=== PATIENT | male | born 1970 | race African-American/Black ===

== ENCOUNTER 2018-04-16 13:30 | Emergency (ER) | payer OTHER ==
[~2018-04-16] VITALS: Ht 182.9 cm; Wt 159.0 kg
[~2018-04-16 13:30] MED LIST: APIDINJ SQ; GLIM4TAB PO; GLUM500T PO; HYDR-2768 PO; LANTINJ SC; NORV5TAB PO
[2018-04-16 13:43] VITALS: BP 155/73; PULSE 99; RESP 18; TEMP 98.7; O2SAT 99
[2018-04-16] MEDS ORDERED: HUMALOG SQ (14:06)
[2018-04-16] MEDS ORDERED: INSU1INJ14 SQ (14:06)
[2018-04-16] MEDS ORDERED: TEST200I13 IM (14:06)
[2018-04-16] MEDS ORDERED: DULA10IN SQ (14:06)
[2018-04-16] MEDS ORDERED: CIAL2.5T PO (14:06)
[2018-04-16] MEDS ORDERED: LISI40TA PO (14:06)
--- NOTE | 2018-04-16 14:30 | RADRPT ---
EXAM DATE/TIME: 04/16/2018 14:16 [place] COMPARISON: No previous studies available for comparison. INDICATIONS : Cough MEDICAL HISTORY : Hypertension. Diabetes mellitus type II. SURGICAL HISTORY : None. ENCOUNTER: Initial ACUITY: 1 day PAIN SCORE: 0/10 LOCATION: chest FINDINGS: No significant focal pleural or parenchymal opacities given portable technique. The cardiomediastinal contours are unremarkable. Osseous structures are intact. CONCLUSION: 1. Negative portable chest. Grant Dumont MD on April 16, 2018 at 14:28 Board Certified Radiologist. This report was verified electronically.
[2018-04-16 14:50] LABS: AUTOMATED NEUTROPHIL # 9.5 TH/MM3 (1.8-7.7); BASOPHIL # 0.1 TH/MM3 (0-0.2); BASOPHIL % 0.7 % (0.0-2.0); EOSINOPHIL # 0.3 TH/MM3 (0-0.4); HEMATOCRIT 42.1 % (39.0-51.0); HEMOGLOBIN 13.5 GM/DL (13.0-17.0); LYMPH % 16.4 % (9.0-44.0); LYMPHOCYTE # 2.1 TH/MM3 (1.0-4.8); MEAN CELL VOLUME 84.3 FL (80.0-100.0); MEAN CORPUSCULAR HEMOGLOBIN 27.1 PG (27.0-34.0); MEAN CORPUSCULAR HGB CONC 32.2 % (32.0-36.0); MEAN PLATELET VOLUME 8.9 FL (7.0-11.0); MONO % 5.8 % (0.0-8.0); MONOCYTE # 0.7 TH/MM3 (0-0.9); NEUT % 75.1 % (16.0-70.0); PLATELET COUNT 301 TH/MM3 (150-450); RED CELL DISTRIBUTION WIDTH 14.5 % (11.6-17.2); WHITE BLOOD COUNT 12.7 TH/MM3 (4.0-11.0)
[2018-04-16 15:22] LABS: ALBUMIN 3.2 GM/DL (3.4-5.0); ALT (GPT) 27 U/L (12-78); AST (GOT) 21 U/L (15-37); BICARBONATE 29.3 MEQ/L (21.0-32.0); BLOOD UREA NITROGEN 17 MG/DL (7-18); CALCIUM 8.9 MG/DL (8.5-10.1); CHLORIDE 105 MEQ/L (98-107); CREATININE 1.27 MG/DL (0.60-1.30); GLOMERULAR FILTRATION RATE 74 ML/MIN (>89); GLUCOSE,RANDOM 117 MG/DL (74-106); SODIUM (NA) 141 MEQ/L (136-145)
[2018-04-16 15:26] LABS: ALKALINE PHOSPHATASE 63 U/L (45-117); TOTAL BILIRUBIN ADULT 0.2 MG/DL (0.2-1.0); TOTAL PROTEIN 6.9 GM/DL (6.4-8.2); TROPONIN I LESS THAN 0.02 NG/ML (0.02-0.05)
--- NOTE | 2018-04-16 16:04 | PD ---
HPI Chief Complaint: Edema Time Seen by Provider: 13:52 Travel History International Travel<30 days: No Contact w/Intl Traveler<30days: No Traveled to known affect area: No History of Present Illness HPI Patient is a 47 year old male who comes in complaining of swelling of his legs, arms, and neck. He says he started Lisinopril 3 weeks ago and was concerned this may be causing it. He says he was looking up his symptoms online and was reading about heart failure and kidney failure and became nervous. He denies any difficulty breathing. He denies swelling to his mouth or throat. He says this has been coming and going, but has been steady for the past few days. The swelling in his legs decreases overnight and gets worse during the day. Severity is mild. PFSH Past Medical History Arthritis: No Blood Disorders: No Heart Rhythm Problems: No Cancer: No Cardiovascular Problems: No High Cholesterol: No Chest Pain: No Congestive Heart Failure: No Diabetes: Yes Patient Takes Glucophage: No Diminished Hearing: No Endocrine: Yes Genitourinary: No Hepatitis: No Hiatal Hernia: No Hypertension: Yes Immune Disorder: No Implanted Vascular Access Dvce: No Musculoskeletal: Yes (CHRONIC BACK AND LT HIP PAIN) Neurologic: No Psychiatric: Yes (CLAUSTROPHOBIC) Reproductive: No Respiratory: Yes (CHILDHOOD ASTHMA, SLEEP APNEA, USES CPAP) Myocardial Infarction: No Sleep Apnea: Yes (CPAP /W O2) Thyroid Disease: No PNEUMOCCOCAL Vaccine (Year): 2 Past Surgical History Abdominal Surgery: No AICD: No Arteriovenous Shunt: No Cardiac Surgery: No Ear Surgery: No Eye Surgery: No Genitourinary Surgery: No Gynecologic Surgery: No Insulin Pump: No Joint Replacement: No Oral Surgery: No Pacemaker: No Thoracic Surgery: No Social History Alcohol Use: Yes (OCCASIONAL) Tobacco Use: No Substance Use: No Allergies-Medications (Allergen,Severity, Reaction): Coded Allergies: No Known Allergies (Verified , 04/26/14) Reported Meds & Prescriptions Reported Meds & Active Scripts Active Reported Cialis (Tadalafil) 2.5 Mg Tab Unknown Dose PO 2XWEEK Do not exceed 1 dose/day. Testosterone Enanthate Inj (Testosterone Enanthate) 200 Mg/Ml Inj 1.5 Mg IM Q15D Trulicity Inj (Dulaglutide Inj) 0.75 Mg/0.5 Ml Pen 1.75 Mg SQ Q7D Lisinopril 40 Mg Tab 40 Mg PO DAILY Tresiba Flextouch Pen Inj (Insulin Degludec Inj) 300 unit/3 ML Pen 80 Units SQ HS Humalog Inj (Insulin Human Lispro) 1,000 Unit/10 Ml Vial 1-9 Units SQ ACHS Max dose at bedtime:( )units; sugars< 70,(0)units; sugars 150-199,(1)unit; sugars 200-249,(3)units; sugars 250-299,(5)units; sugars 300-349,(7)units; sugars more than 349,(9)units. Review of Systems Except as stated in HPI: all other systems reviewed are Neg General / Constitutional: No: Fever, Chills HENT: No: Headaches, Lightheadedness Cardiovascular: No: Chest Pain or Discomfort Respiratory: No: Shortness of Breath Gastrointestinal: No: Nausea, Vomiting Musculoskeletal: Positive: Edema, No: Pain Skin: No Rash, No Change in Pigmentation Neurologic: No: Weakness, Dizziness Physical Exam Narrative GENERAL: Awake and alert, in no acute distress. SKIN: Focused skin assessment warm/dry. HEAD: Atraumatic. Normocephalic. EYES: Pupils equal and round. No scleral icterus. ENT: No swelling of the lips or tongue. No pharyngeal edema. Mucous membranes pink and moist. NECK: Trachea midline. No JVD. CARDIOVASCULAR: Regular rate and rhythm. No murmur appreciated. RESPIRATORY: No accessory muscle use. Clear to auscultation. Breath sounds equal bilaterally. GASTROINTESTINAL: Abdomen soft, non-tender, nondistended. MUSCULOSKELETAL: No obvious deformities. No clubbing. No cyanosis. minimal edema of the bilateral lower extremities. NEUROLOGICAL: Awake and alert. No obvious cranial nerve deficits. Motor grossly within normal limits. Normal speech. PSYCHIATRIC: Appropriate mood and affect; insight and judgment normal. Data Data Last Documented VS Vital Signs Date Time Temp Pulse Resp B/P (MAP) Pulse Ox O2 Delivery O2 Flow Rate FiO2 04/16/18 13:43 98.7 99 18 155/73 (100) 99 Orders Orders Iv Access Insert/Monitor (04/16/18 14:10) Complete Blood Count With Diff (04/16/18 14:10) Comprehensive Metabolic Panel (04/16/18 14:10) Electrocardiogram (04/16/18 ) Troponin I (04/16/18 14:10) B-Type Natriuretic Peptide (04/16/18 14:10) Chest, Single Ap (04/16/18 ) Labs Laboratory Tests Test 04/16/18 14:00 White Blood Count 12.7 TH/MM3 Red Blood Count 5.00 MIL/MM3 Hemoglobin 13.5 GM/DL Hematocrit 42.1 % Mean Corpuscular Volume 84.3 FL Mean Corpuscular Hemoglobin 27.1 PG Mean Corpuscular Hemoglobin Concent 32.2 % Red Cell Distribution Width 14.5 % Platelet Count 301 TH/MM3 Mean Platelet Volume 8.9 FL Neutrophils (%) (Auto) 75.1 % Lymphocytes (%) (Auto) 16.4 % Monocytes (%) (Auto) 5.8 % Eosinophils (%) (Auto) 2.0 % Basophils (%) (Auto) 0.7 % Neutrophils # (Auto) 9.5 TH/MM3 Lymphocytes # (Auto) 2.1 TH/MM3 Monocytes # (Auto) 0.7 TH/MM3 Eosinophils # (Auto) 0.3 TH/MM3 Basophils # (Auto) 0.1 TH/MM3 CBC Comment DIFF FINAL Differential Comment Blood Urea Nitrogen 17 MG/DL Creatinine 1.27 MG/DL Random Glucose 117 MG/DL Total Protein 6.9 GM/DL Albumin 3.2 GM/DL Calcium Level 8.9 MG/DL Alkaline Phosphatase 63 U/L Aspartate Amino Transf (AST/SGOT) 21 U/L Alanine Aminotransferase (ALT/SGPT) 27 U/L Total Bilirubin 0.2 MG/DL Sodium Level 141 MEQ/L Potassium Level 4.2 MEQ/L Chloride Level 105 MEQ/L Carbon Dioxide Level 29.3 MEQ/L Anion Gap 7 MEQ/L Estimat Glomerular Filtration Rate 74 ML/MIN Troponin I LESS THAN 0.02 NG/ML B-Type Natriuretic Peptide LESS THAN 2 PG/ML MDM Medical Decision Making Medical Screen Exam Complete: Yes Emergency Medical Condition: Yes Interpretation(s) ECG shows NSR at 100, no ST elevation or depression Differential Diagnosis dependent edema vs DIANE vs CHF Narrative Course Patient is a 47 year old male who comes in complaining of swelling of his arms and legs. There is minimal edema of his legs, no obvious edema of his arms or face. IV established, labs sent. Labs show Cr is within normal limits. CXR shows no acute abnormalities, no cardiomegaly or pulmonary edema. Last 24 hours Impressions Chest X-Ray 04/16/18 0000 Signed Impressions: Service Date/Time: Monday, April 16, 2018 14:16 - CONCLUSION: 1. Negative portable chest. Grant Dumont MD Patient reassured. Advised to keep his legs elevated and wear compression socks. Advised to follow up with his doctor. Advised to return to the ED as needed for any worsening symptoms. Diagnosis Primary Impression: Dependent edema Patient Instructions: Edema (ED), General Instructions Additional Instructions: Follow-up with your doctor. Keep your legs elevated whenever possible. Try compression stockings. Return to the ED as needed for any worsening symptoms. Disposition: 01 DISCHARGE HOME Condition: Stable Sujtaha Charlton MD April 16, 2018 16:04
--- NOTE | 2018-04-16 17:43 | EKG ---
Date Performed: 04/16/2018 Time Performed: 14:28:00 PTAGE: 47 years EKG: SINUS TACHYCARDIA SEPTAL MYOCARDIAL INFARCTION ABNORMAL ECG PREVIOUS TRACING : 04/29/2014 09.10 No significant change from previous tracing noted. DOCTOR: Uday Rowley Interpretating Date/Time 04/16/2018 17:42:08
== END 2018-04-16 16:22 | disposition home or self-care (01) ==
LOC: NEPE 13:30
DX: R60.9 Edema, unspecified (principal); E11.9 Type 2 diabetes mellitus without complications; I10 Essential (primary) hypertension; G47.30 Sleep apnea, unspecified; R00.0 Tachycardia, unspecified; I21.29 ST elevation (STEMI) myocardial infarction involving other sites; Z79.4 Long term (current) use of insulin
CPT/HCPCS: 71045; 80053; 83880; 84484; 85025; 93005; 99285

== ENCOUNTER 2018-04-23 12:26 | Emergency (ER) | payer OTHER ==
[~2018-04-23] VITALS: Ht 182.9 cm; Wt 158.0 kg
[~2018-04-23 12:26] MED LIST changes: -APIDINJ SQ; +CIAL2.5T PO; +DULA10IN SQ; -GLIM4TAB PO; -GLUM500T PO; +HUMALOG SQ; -HYDR-2768 PO; +INSU1INJ14 SQ; -LANTINJ SC; +LISI40TA PO; -NORV5TAB PO; +TEST200I13 IM
[2018-04-23 12:38] VITALS: BP 179/88; PULSE 104; RESP 20; TEMP 99.2; O2SAT 99
[2018-04-23 14:12] VITALS: BP 184/85; PULSE 105; RESP 16; O2SAT 100
[2018-04-23 14:25] LABS: BASOPHIL # 0.1 TH/MM3 (0-0.2); BASOPHIL % 0.6 % (0.0-2.0); EOSINOPHIL # 0.4 TH/MM3 (0-0.4); EOSINOPHIL % 2.9 % (0.0-4.0); HEMATOCRIT 43.5 % (39.0-51.0); HEMOGLOBIN 13.9 GM/DL (13.0-17.0); LYMPH % 14.7 % (9.0-44.0); LYMPHOCYTE # 1.9 TH/MM3 (1.0-4.8); MEAN CELL VOLUME 85.1 FL (80.0-100.0); MEAN CORPUSCULAR HEMOGLOBIN 27.2 PG (27.0-34.0); MEAN CORPUSCULAR HGB CONC 31.9 % (32.0-36.0); MEAN PLATELET VOLUME 9.1 FL (7.0-11.0); MONO % 5.6 % (0.0-8.0); MONOCYTE # 0.7 TH/MM3 (0-0.9); NEUT % 76.2 % (16.0-70.0); PLATELET COUNT 283 TH/MM3 (150-450); RED BLOOD COUNT 5.11 MIL/MM3 (4.50-5.90); RED CELL DISTRIBUTION WIDTH 14.7 % (11.6-17.2); WHITE BLOOD COUNT 13.1 TH/MM3 (4.0-11.0)
[2018-04-23 14:31] LABS: BILIRUBIN, URINE NEG (NEG); BLOOD, URINE NEG (NEG); GLUCOSE,URINE 300 mg/dL (NEG); KETONE, URINE TRACE mg/dL (NEG); NITRITE,URINE NEG (NEG); SQUAMOUS EPITHELIAL CELL URINE <1 /hpf (0-5); URINE COLOR YELLOW (YELLW/STRAW); URINE LEUKOCYTE ESTERASE NEG (NEG)
--- NOTE | 2018-04-23 14:44 | PD ---
HPI Chief Complaint: Edema Time Seen by Provider: 13:46 Travel History International Travel<30 days: No Contact w/Intl Traveler<30days: No Traveled to known affect area: No History of Present Illness HPI 47-year-old male complains of extremity swelling. Patient states that symptoms started about 12 days ago. Patient has history hypertension and was on losartan. Patient states that losartan was stopped and patient started on lisinopril 40 mg daily 3 weeks ago. Patient states that he started having increasing swelling of the hand and feet and extremity for the past 12 days. Patient denies any headache. Patient denies any neck pain. Patient denies any chest pain or shortness of breath. Patient denies abdominal pain. Patient denies any back pain. Patient denies any focal weakness or numbness of the extremity. Patient denies a history of CHF. Patient denies history of DVT or PE. Patient was seen in emergency room 7 days ago. patient was diagnosed with dependent edema. Lab work was done including chest x-ray which was normal. Patient was advised to follow with personal physician. Dr. Byrnes, his personal physician, gave him prescription for furosemide 40 mg daily. Patient has been taking furosemide as directed. Patient states that he has persistent swelling despite the medication. Patient denies any fever chills. Patient denies excessive fluid intake. Patient denies any thyroid disease. No other new medication. PFSH Past Medical History Arthritis: No Blood Disorders: No Heart Rhythm Problems: No Cancer: No Cardiovascular Problems: No High Cholesterol: Yes Chest Pain: No Congestive Heart Failure: No Diabetes: Yes Patient Takes Glucophage: No Diminished Hearing: No Endocrine: Yes Genitourinary: No Hepatitis: No Hiatal Hernia: No Hypertension: Yes Immune Disorder: No Implanted Vascular Access Dvce: No Musculoskeletal: Yes (CHRONIC BACK AND LT HIP PAIN) Neurologic: No Psychiatric: Yes (CLAUSTROPHOBIC) Reproductive: No Respiratory: Yes (CHILDHOOD ASTHMA, SLEEP APNEA, USES CPAP) Myocardial Infarction: No Sleep Apnea: Yes (CPAP /W O2) Thyroid Disease: No Tetanus Vaccination: < 5 Years PNEUMOCCOCAL Vaccine (Year): 2 Past Surgical History Abdominal Surgery: No AICD: No Arteriovenous Shunt: No Cardiac Surgery: No Ear Surgery: No Eye Surgery: No Genitourinary Surgery: No Gynecologic Surgery: No Insulin Pump: No Joint Replacement: No Oral Surgery: No Pacemaker: No Thoracic Surgery: No Social History Alcohol Use: Yes (OCCASIONAL) Tobacco Use: No Substance Use: No Allergies-Medications (Allergen,Severity, Reaction): Coded Allergies: No Known Allergies (Verified , 04/26/14) Reported Meds & Prescriptions Reported Meds & Active Scripts Active Reported Cialis (Tadalafil) 2.5 Mg Tab Unknown Dose PO 2XWEEK Do not exceed 1 dose/day. Testosterone Enanthate Inj (Testosterone Enanthate) 200 Mg/Ml Inj 1.5 Mg IM Q15D Trulicity Inj (Dulaglutide Inj) 0.75 Mg/0.5 Ml Pen 1.75 Mg SQ Q7D Lisinopril 40 Mg Tab 40 Mg PO DAILY Tresiba Flextouch Pen Inj (Insulin Degludec Inj) 300 unit/3 ML Pen 80 Units SQ HS Humalog Inj (Insulin Human Lispro) 1,000 Unit/10 Ml Vial 1-9 Units SQ ACHS Max dose at bedtime:( )units; sugars< 70,(0)units; sugars 150-199,(1)unit; sugars 200-249,(3)units; sugars 250-299,(5)units; sugars 300-349,(7)units; sugars more than 349,(9)units. Review of Systems General / Constitutional: No: Fever Eyes: No: Visual changes HENT: No: Headaches Cardiovascular: No: Chest Pain or Discomfort Respiratory: No: Shortness of Breath Gastrointestinal: No: Abdominal Pain Genitourinary: No: Dysuria Musculoskeletal: No: Pain Skin: No Rash Neurologic: No: Weakness Psychiatric: No: Depression Endocrine: No: Polydipsia Hematologic/Lymphatic: No: Easy Bruising Physical Exam Narrative GENERAL: Well-nourished, well-developed patient. SKIN: Focused skin assessment warm/dry. HEAD: Normocephalic. EYES: No scleral icterus. No injection or drainage. NECK: Supple, trachea midline. No JVD or lymphadenopathy. CARDIOVASCULAR: Regular rate and rhythm without murmurs, gallops, or rubs. RESPIRATORY: Breath sounds equal bilaterally. No accessory muscle use. GASTROINTESTINAL: Abdomen soft, non-tender, nondistended. MUSCULOSKELETAL: Patient has +1-+2 pitting edema lower extremity. BACK: Nontender without obvious deformity. No CVA tenderness. Neurologic exam normal. Data Data Last Documented VS Vital Signs Date Time Temp Pulse Resp B/P (MAP) Pulse Ox O2 Delivery O2 Flow Rate FiO2 04/23/18 14:12 105 16 184/85 (118) 100 Room Air 04/23/18 12:38 99.2 Orders Orders Electrocardiogram (04/23/18 13:59) Complete Blood Count With Diff (04/23/18 13:59) Comprehensive Metabolic Panel (04/23/18 13:59) Creatine Kinase (Cpk) (04/23/18 13:59) Troponin I (04/23/18 13:59) B-Type Natriuretic Peptide (04/23/18 13:59) Urinalysis - C+S If Indicated (04/23/18 13:59) Thyroid Stimulating Hormone (04/23/18 13:59) Chest, Single Ap (04/23/18 13:59) Iv Access Insert/Monitor (04/23/18 13:59) Ecg Monitoring (04/23/18 13:59) Oximetry (04/23/18 13:59) Us Leg Venous Doppler Bilat (04/23/18 14:09) D-Dimer (04/23/18 14:09) CKMB (04/23/18 14:00) CKMB% (04/23/18 14:00) Ed Discharge Order (04/23/18 17:52) Labs Laboratory Tests Test 04/23/18 14:00 04/23/18 14:05 04/23/18 14:15 White Blood Count 13.1 TH/MM3 Red Blood Count 5.11 MIL/MM3 Hemoglobin 13.9 GM/DL Hematocrit 43.5 % Mean Corpuscular Volume 85.1 FL Mean Corpuscular Hemoglobin 27.2 PG Mean Corpuscular Hemoglobin Concent 31.9 % Red Cell Distribution Width 14.7 % Platelet Count 283 TH/MM3 Mean Platelet Volume 9.1 FL Neutrophils (%) (Auto) 76.2 % Lymphocytes (%) (Auto) 14.7 % Monocytes (%) (Auto) 5.6 % Eosinophils (%) (Auto) 2.9 % Basophils (%) (Auto) 0.6 % Neutrophils # (Auto) 10.0 TH/MM3 Lymphocytes # (Auto) 1.9 TH/MM3 Monocytes # (Auto) 0.7 TH/MM3 Eosinophils # (Auto) 0.4 TH/MM3 Basophils # (Auto) 0.1 TH/MM3 CBC Comment DIFF FINAL Differential Comment Blood Urea Nitrogen 11 MG/DL Creatinine 1.08 MG/DL Random Glucose 156 MG/DL Total Protein 7.3 GM/DL Albumin 3.2 GM/DL Calcium Level 8.5 MG/DL Alkaline Phosphatase 63 U/L Aspartate Amino Transf (AST/SGOT) 19 U/L Alanine Aminotransferase (ALT/SGPT) 25 U/L Total Bilirubin 0.3 MG/DL Sodium Level 141 MEQ/L Potassium Level 4.2 MEQ/L Chloride Level 107 MEQ/L Carbon Dioxide Level 26.7 MEQ/L Anion Gap 7 MEQ/L Estimat Glomerular Filtration Rate 89 ML/MIN Total Creatine Kinase 401 U/L Creatine Kinase MB 2.8 NG/ML Creatine Kinase MB % 0.7 % Troponin I LESS THAN 0.02 NG/ML B-Type Natriuretic Peptide 6 PG/ML Thyroid Stimulating Hormone 3rd Gen 1.440 uIU/ML D-Dimer Quantitative (PE/DVT) 0.23 MG/L FEU Urine Color YELLOW Urine Turbidity CLEAR Urine pH 6.0 Urine Specific Powell 1.023 Urine Protein TRACE mg/dL Urine Glucose (UA) 300 mg/dL Urine Ketones TRACE mg/dL Urine Occult Blood NEG Urine Nitrite NEG Urine Bilirubin NEG Urine Urobilinogen LESS THAN 2.0 MG/DL Urine Leukocyte Esterase NEG Urine RBC 1 /hpf Urine WBC 1 /hpf Urine Squamous Epithelial Cells <1 /hpf Microscopic Urinalysis Comment CULT NOT INDICATED MDM Medical Decision Making Medical Screen Exam Complete: Yes Emergency Medical Condition: Yes Interpretation(s) Last Impressions Lower Extremity Ultrasound 04/23/18 1409 Signed Impressions: CONCLUSION: 1. The study is negative for bilateral lower extremity deep venous thrombosis. Chest X-Ray 04/23/18 5439 Signed Impressions: CONCLUSION: Negative examination. 1740 PM. CBC WBC 13.1. 76 neutrophil. CMP within normal limits. Cardiac enzymes are normal. BNP 6. TSH normal. UA is negative. Differential Diagnosis Differential diagnosis including dependent edema, fluid overload, DVT, CHF, hypothyroidism. Narrative Course 47-year-old male with extremity swelling. Diagnosis Primary Impression: Peripheral edema Patient Instructions: General Instructions Additional Instructions: Stop Lasix. Bumex as directed. Follow-up with personal physician. Return if worse. Med/Other Pt SpecificInfo: Prescription(s) given Scripts Bumetanide (Bumetanide) 1 Mg Tab 1 MG PO DAILY, #10 TAB 0 Refills Prov: Hammad Dobbs MD 04/23/18 Disposition: 01 DISCHARGE HOME Condition: Stable Hammad Dobbs MD April 23, 2018 14:44
[2018-04-23 14:53] LABS: ALBUMIN 3.2 GM/DL (3.4-5.0); ALT (GPT) 25 U/L (12-78); AST (GOT) 19 U/L (15-37); BICARBONATE 26.7 MEQ/L (21.0-32.0); BLOOD UREA NITROGEN 11 MG/DL (7-18); CALCIUM 8.5 MG/DL (8.5-10.1); CHLORIDE 107 MEQ/L (98-107); CREATININE 1.08 MG/DL (0.60-1.30); GLOMERULAR FILTRATION RATE 89 ML/MIN (>89); GLUCOSE,RANDOM 156 MG/DL (74-106); SODIUM (NA) 141 MEQ/L (136-145)
--- NOTE | 2018-04-23 14:56 | RADRPT ---
EXAM DATE: 04/23/2018 2:53 PM EDT AGE/SEX: 47 years / Male INDICATIONS: Feet and hand swelling. Check for heart swelling. CLINICAL DATA: This is the patient's initial encounter. Patient reports that signs and symptoms have been present for 1 day and indicates a pain score of 0/10. MEDICAL/SURGICAL HISTORY: None. None. COMPARISON: Chest x-ray 04/16/2018. FINDINGS: A single AP view of the chest demonstrates the lungs to be symmetrically aerated without evidence of mass, infiltrate or effusion. The cardiomediastinal contours are unremarkable. Osseous structures a re intact. CONCLUSION: Negative examination. Electronically signed by: Dexter Navarro MD 04/23/2018 2:55 PM EDT
[2018-04-23 15:03] LABS: ALKALINE PHOSPHATASE 63 U/L (45-117); TOTAL BILIRUBIN ADULT 0.3 MG/DL (0.2-1.0); TOTAL PROTEIN 7.3 GM/DL (6.4-8.2); TROPONIN I LESS THAN 0.02 NG/ML (0.02-0.05)
--- NOTE | 2018-04-23 16:33 | EKG ---
Date Performed: 04/23/2018 Time Performed: 14:26:00 PTAGE: 47 years EKG: Sinus rhythm SEPTAL MYOCARDIAL INFARCTION ABNORMAL ECG NO PREVIOUS TRACING DOCTOR: Uday Rowley Interpretating Date/Time 04/23/2018 16:33:08
--- NOTE | 2018-04-23 16:43 | RADRPT ---
EXAM DATE: 04/23/2018 4:36 PM EDT AGE/SEX: 47 years / Male INDICATIONS: Bilateral leg swelling. CLINICAL DATA: This is the patient's initial encounter. Patient reports that signs and symptoms have been present for 1 day and indicates a pain score of 5/10. MEDICAL/SURGICAL HISTORY: Hypertension. Chronic back pain. . COMPARISON: . No external comparison. TECHNIQUE: Venous ultrasound of both lower extremities was performed from the inguinal ligament to t he proximal calf. Real-time, color Doppler and spectral tracing, compression and augmentation techni ques were used. FINDINGS: Right Leg: There is normal compressibility of the deep venous system from the inguinal region to the proximal calf. No echogenic clot is seen in the lumen of the common femoral, femoral, popliteal, an d posterior tibial veins. There is a normal response of the venous system to proximal and distal aug mentation and respiration. Left Leg: There is normal compressibility of the deep venous system from the inguinal region to the proximal calf. No echogenic clot is seen in the lumen of the common femoral, femoral, popliteal, and posterior tibial veins. There is a normal response of the venous system to proximal and distal augm entation and respiration. CONCLUSION: 1. The study is negative for bilateral lower extremity deep venous thrombosis. Electronically signed by: Dexter Navarro MD 04/23/2018 4:42 PM EDT
[2018-04-23] MEDS ORDERED: BUME1TAB PO (17:55)
[2018-04-23 18:33] VITALS: BP 143/75
== END 2018-04-23 18:37 | disposition home or self-care (01) ==
LOC: NEPE 12:26
DX: R60.0 Localized edema (principal); E11.9 Type 2 diabetes mellitus without complications; I10 Essential (primary) hypertension; R94.31 Abnormal electrocardiogram [ECG] [EKG]; Z79.4 Long term (current) use of insulin; Z79.899 Other long term (current) drug therapy
CPT/HCPCS: 71045; 80053; 81001; 82550; 82552; 83880; 84443; 84484; 85025; 85379; 93005; 93970